=== PATIENT | female | born 2000 | race American Indian/Alaskan Native ===

== ENCOUNTER 2020-06-16 18:41 | Emergency (ER) | payer SELFPAY ==
[2020-06-16 19:28] VITALS: BP 109/75
[2020-06-16] MEDS ORDERED: LIDOCAINE (2%) 20 MG/1 ML VIAL 20 ML MDV INFILTRATI ONE (20:03)
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
== END 2020-06-16 21:54 | disposition home or self-care (01) ==
LOC: ED 18:41
DX: S61.412A Laceration without foreign body of left hand, initial encounter (principal); W45.8XXA Other foreign body or object entering through skin, initial encounter; Y93.89 Activity, other specified; Y92.89 Other specified places as the place of occurrence of the external cause; Y99.8 Other external cause status
CPT/HCPCS: 99282